=== PATIENT | female | born 1970 | race Native Hawaiian/Other Pacific Islander ===

== ENCOUNTER 2018-02-07 09:23 | Outpatient (CLI) | payer OTHER | END 2018-02-07 19:21 | LOC: MAMMO 09:23 | DX: Z12.31 Encounter for screening mammogram for malignant neoplasm of breast (principal) ==

== ENCOUNTER 2021-09-16 09:59 | Outpatient (CLI) | payer OTHER ==
[2021-09-16 10:37] LABS: PLATELET COUNT 253 K/uL (152-353)
[2021-09-16 10:41] LABS: POTASSIUM 4.7 mmol/L (3.6-5.2)
== END 2021-09-16 19:20 | disposition home or self-care (01) ==
LOC: CT 09:59
PROVIDERS: ATTEND Family Medicine
DX: R10.9 Unspecified abdominal pain (principal); B18.2 Chronic viral hepatitis C; K80.50 Calculus of bile duct without cholangitis or cholecystitis without obstruction
CPT/HCPCS: 36415; 80053; 85027; Q9963

== ENCOUNTER 2021-09-27 07:39 | Outpatient (CLI) | payer OTHER ==
[2021-09-27 07:56] LABS: PLATELET COUNT 216 K/uL (152-353)
[2021-09-27 08:39] LABS: POTASSIUM 4.5 mmol/L (3.6-5.2)
== END 2021-09-27 18:55 | disposition home or self-care (01) ==
LOC: LABW 07:39
PROVIDERS: ATTEND Family Medicine
DX: R10.9 Unspecified abdominal pain (principal); R60.0 Localized edema; I10 Essential (primary) hypertension; F32.A Depression, unspecified; F41.9 Anxiety disorder, unspecified; Z83.3 Family history of diabetes mellitus; Z68.34 Body mass index [BMI] 34.0-34.9, adult; M19.90 Unspecified osteoarthritis, unspecified site; E55.9 Vitamin D deficiency, unspecified; K21.9 Gastro-esophageal reflux disease without esophagitis
CPT/HCPCS: 36415; 80053; 80061; 81000; 82306; 83036; 83735; 84439; 84443; 84550; 85027

== ENCOUNTER 2021-11-11 13:00 | Outpatient (CLI) | payer OTHER | END 2021-11-11 21:37 | disposition home or self-care (01) | LOC: LABW 13:00 | PROVIDERS: ATTEND Internal Medicine Gastroenterology | DX: B17.10 Acute hepatitis C without hepatic coma (principal) | CPT/HCPCS: 36415; 80074; 87522 ==